=== PATIENT | female | born 1935 | race Caucasian/White ===

== ENCOUNTER 2022-07-04 09:25 | Emergency (ER) | payer MEDICARE, BC ==
[~2022-07-04] VITALS: Ht 157.5 cm; Wt 55.3 kg
[2022-07-04 09:33] VITALS: BP 137/75
--- NOTE | 2022-07-04 09:33 | NUR ---
BIBS C/O RASH ON HER LEFT KNEE X5 DAYS. VITALS ARE WITHIN NORMAL LIMITS. AWAITING MD ORDERS.
[2022-07-04] MEDS ORDERED: CLOT15CR5 TP (10:18)
--- NOTE | 2022-07-04 11:00 | NUR ---
Patient discharged to home in stable condition. Written and verbal after care instructions given. Patient verbalizes understanding of instruction.
== END 2022-07-04 11:00 | disposition home or self-care (01) ==
LOC: ER 09:30
DX: L98.9 Disorder of the skin and subcutaneous tissue, unspecified (principal); I10 Essential (primary) hypertension; I48.91 Unspecified atrial fibrillation; Z88.0 Allergy status to penicillin; Z91.013 Allergy to seafood; Z60.2 Problems related to living alone

== ENCOUNTER 2023-02-11 16:05 | Inpatient (IN) | payer MEDICARE, BC ==
[~2023-02-11] VITALS: Ht 165.1 cm; Wt 56.2 kg
[~2023-02-11 16:05] MED LIST: CLOT15CR5 TP
--- NOTE | 2023-02-11 16:20 | NUR ---
INSERTED ANGO CATHETER G 20 ON RT AC BLOOD DROW AND SENT TO LAB
--- NOTE | 2023-02-11 16:20 | NUR ---
RECEIVED PT 87 YRS FEMALE CAME FROM HOME WALKING IN C/O PAPITATION STARTED AT 1530 TOday c/o my heart reasing up EKG done at bed side DR. COLON AT BED SIDE FOR EVALUATION PT
--- NOTE | 2023-02-11 16:23 | NUR ---
PAGED DR. LUNA FOR CARDIOLOGY CONSULT
[2023-02-11] MEDS ORDERED: LORAZEPAM INJ 2 MG/ML VIAL IV ONE (16:30)
[2023-02-11] MEDS ORDERED: ASPIRIN 325 MG TABLET PO ONE (16:30)
--- NOTE | 2023-02-11 16:35 | NUR ---
PAGED DR. FRANKS FOR CONSULT
--- NOTE | 2023-02-11 16:40 | NUR ---
[facility] CALLED,DR OLIVERA SPOKE WITH DR BORREGO
--- NOTE | 2023-02-11 16:42 | NUR ---
FAXED EKGS TO [facility]
[2023-02-11 16:48] LABS: BASOPHILS % (AUTO) 0.3 % (0.0-2.0); EOSINOPHILS % (AUTO) 0.5 % (0.0-6.0); HEMATOCRIT 40 % (33-45); HEMOGLOBIN 13.3 g/dL (11.5-14.8); LYMPHOCYTES # (AUTO) 1.3 K/uL (0.8-4.8); LYMPHOCYTES % (AUTO) 19.2 % (20.0-44.0); MEAN CORPUSCULAR HGB CONC 33 g/dl (31.0-36.0); MEAN CORPUSCULAR VOLUME 92 fL (82-100); MONOCYTES # (AUTO) 0.4 K/uL (0.1-1.30); MONOCYTES % (AUTO) 5.7 % (2.0-12.0); NEUTROPHILS # (AUTO) 5.1 K/uL (1.8-8.9); NEUTROPHILS % (AUTO) 74.3 % (43.0-81.0); PLATELET COUNT (AUTO) 286 K/uL (150-450); RED BLOOD CELL COUNT(AUTO) 4.37 MIL/uL (4.0-5.2); WHITE BLOOD COUNT (AUTO) 6.8 K/uL (4.3-11.0)
--- NOTE | 2023-02-11 16:51 | NUR ---
CALL BACK FROM DR OLIVERA, SPOKE WITH DR BORREGO ACCORDING TO HER ON-CALL [place] [facility], SHE DOESN'T MEET STEMI CRITERIA
[2023-02-11] MEDS ORDERED: ASPIRIN 325 MG TABLET ONE (16:54)
[2023-02-11] MEDS ORDERED: LORAZEPAM INJ 2 MG/ML VIAL ONE (16:55)
[2023-02-11 17:02] LABS: CALCIUM, SERUM 9.5 mg/dL (8.5-10.1); CARBON DIOXIDE 26 mmol/L (21-32); CHLORIDE 103 mmol/L (98-107); CREATININE 0.9 mg/dL (0.6-1.3); D-DIMER 0.27 mg/L(FEU (0.17-0.50); GLUCOSE 186 mg/dL (74-106); POTASSIUM 3.1 mmol/L (3.5-5.1); SODIUM SERUM 142 mmol/L (136-145); UREA NITROGEN, BLOOD 13 mg/dL (7-18)
--- NOTE | 2023-02-11 17:09 | NUR ---
DR. GIO GU, CADIOLOGY
[2023-02-11 17:17] LABS: ALANINE AMINOTRANSFERASE 38 U/L (12-78); ALBUMIN 3.7 g/dL (3.4-5.0); ALKALINE PHOSPHATASE 90 U/L (46-116); ASPARTATE AMINOTRANSFERASE 28 U/L (15-37); BILIRUBIN,DIRECT 0.2 mg/dL (0.0-0.2); BILIRUBIN,TOTAL 1.2 mg/dL (0.2-1.0); TOTAL PROTEIN, SERUM 7.4 g/dL (6.4-8.2)
--- NOTE | 2023-02-11 17:29 | NUR ---
COVID SWAB SENT TO LAB
[2023-02-11] MEDS ORDERED: POTASSIUM CHLORIDE 20 MEQ TAB.PRT.SR PO ONE ×2 (17:30→18:02)
[2023-02-11] MEDS ORDERED: ATOR10TA PO (18:54)
[2023-02-11] MEDS ORDERED: RIVA10TA PO (18:54)
[2023-02-11] MEDS ORDERED: LORA-259 PO (18:54)
[2023-02-11] MEDS ORDERED: L-THEANINE PO (18:54)
[2023-02-11] MEDS ORDERED: PRED1TAB PO (18:54)
[2023-02-11] MEDS ORDERED: HYDR12.55 PO (18:54)
[2023-02-11] MEDS ORDERED: DIGO125T PO (18:54)
[2023-02-11] MEDS ORDERED: TELM40TA8 PO (18:54)
--- NOTE | 2023-02-11 19:20 | NUR ---
HAND OFF BANDAR PRESTON
--- NOTE | 2023-02-11 19:24 | NUR ---
Hernandez HERNANDEZx4, able to express her concerns. Patient on cell phone, providing pts current status. Patient states she is feeling better, and is glad that her vitals signs look better. Discussed plan of care, pt verbalized agreement. All safety precautions taken.
[2023-02-11] MEDS ORDERED: MAGNESIUM OXIDE 400 MG TABLET PO ONE (20:30)
[2023-02-11] MEDS ORDERED: MAGNESIUM OXIDE 400 MG TABLET ONE (20:51)
[2023-02-11] MEDS ORDERED: LORAZEPAM 1 MG TABLET PO PRN (21:00)
[2023-02-11 21:19] LABS: MAGNESIUM 2.1 mg/dL (1.8-2.4); PHOSPHORUS 3.3 mg/dL (2.5-4.9)
[2023-02-11] MEDS ORDERED: ONDANSETRON HCL/PF 4 MG/2 ML VIAL IVP PRN (21:30)
[2023-02-11] MEDS ORDERED: ACETAMINOPHEN 325 MG TABLET PO PRN (21:30)
[2023-02-11] MEDS ORDERED: MAGNESIUM HYDROXIDE 30 ML UDC PO PRN (21:30)
--- NOTE | 2023-02-11 21:44 | NUR ---
Report given to RN, pt clear to go up to room 311
--- NOTE | 2023-02-11 21:50 | NUR ---
TAKEN TO 311-2 UNDER ACLS
--- NOTE | 2023-02-11 22:00 | NUR ---
ADMISSION 87y/o female Alert Oriented x3 anxious, observed no sob with exertion. Coccyx redness. Ambulating independently. Instructed how to use call light device, verbalized understanding. Will cont to monitor.
[2023-02-11] MEDS: RIVAROXABAN 10 MG TABLET PO SCH (22:50)
[2023-02-11] MEDS: ATORVASTATIN 10 MG TABLET PO SCH (22:50)
[2023-02-11] MEDS: VALSARTAN 80 MG TABLET PO SCH (22:59)
[2023-02-11 23:00] VITALS: BP 178/61
[2023-02-12] VITALS (7 sets, daily range): BP systolic 105–187; BP diastolic 44–67
[2023-02-12] MEDS ORDERED: Z GUARD REMEDY 4 OZ OINT TP PRN (01:30)
--- NOTE | 2023-02-12 01:44 | NUR ---
BP ELEVATED Patient in bed, denies N/V, c/o headache. Given PO Tylenol. BP still elevated 188/75 Pulse 54. Notified REAL ESTATE PROCESSOR Mary.
--- NOTE | 2023-02-12 04:39 | NUR ---
ELEVATED BP Patient ambulated to the bathroom, headache resolved with Tylenol. BP still elevated 187/67 Sinus delia in blending line attendant HR 50's. No c/o chest pain. Notified BELEM Hernandez.
[2023-02-12] MEDS ORDERED: hydrALAZINE HCL IV 20 MG VIAL IV PRN (05:00)
[2023-02-12 07:00] LABS: BASOPHILS % (AUTO) 0.6 % (0.0-2.0); EOSINOPHILS % (AUTO) 0.8 % (0.0-6.0); HEMATOCRIT 40 % (33-45); HEMOGLOBIN 13.2 g/dL (11.5-14.8); LYMPHOCYTES # (AUTO) 1.2 K/uL (0.8-4.8); LYMPHOCYTES % (AUTO) 18.4 % (20.0-44.0); MEAN CORPUSCULAR HGB CONC 33 g/dl (31.0-36.0); MEAN CORPUSCULAR VOLUME 93 fL (82-100); MONOCYTES # (AUTO) 0.5 K/uL (0.1-1.30); MONOCYTES % (AUTO) 7.5 % (2.0-12.0); NEUTROPHILS # (AUTO) 4.7 K/uL (1.8-8.9); NEUTROPHILS % (AUTO) 72.7 % (43.0-81.0); PLATELET COUNT (AUTO) 278 K/uL (150-450); RED BLOOD CELL COUNT(AUTO) 4.28 MIL/uL (4.0-5.2); WHITE BLOOD COUNT (AUTO) 6.4 K/uL (4.3-11.0)
--- NOTE | 2023-02-12 07:11 | NUR ---
WOUND CARE CONSULT: PT PRESENTS WITH SOME REDNESS TO COCCYX AREA WHICH IS NONTENDER, PRESENT ON ADMISSION. RECOMMENDATIONS MADE FOR SKIN PROTECTION. DISCUSSED WITH NURSING STAFF. PT IS INDEPENDENT WITH BED MOBILITY AND IS CONTINENT. MD IN AGREEMENT WITH PLAN OF CARE.
[2023-02-12 07:28] LABS: ALANINE AMINOTRANSFERASE 35 U/L (12-78); ALBUMIN 3.5 g/dL (3.4-5.0); ALKALINE PHOSPHATASE 88 U/L (46-116); ASPARTATE AMINOTRANSFERASE 24 U/L (15-37); BILIRUBIN,TOTAL 1.6 mg/dL (0.2-1.0); CALCIUM, SERUM 9.2 mg/dL (8.5-10.1); CARBON DIOXIDE 26 mmol/L (21-32); CHLORIDE 106 mmol/L (98-107); CREATININE 0.7 mg/dL (0.6-1.3); GLUCOSE 115 mg/dL (74-106); PHOSPHORUS 2.9 mg/dL (2.5-4.9); POTASSIUM 3.3 mmol/L (3.5-5.1); SODIUM SERUM 143 mmol/L (136-145); TOTAL PROTEIN, SERUM 7.2 g/dL (6.4-8.2); UREA NITROGEN, BLOOD 14 mg/dL (7-18)
[2023-02-12 07:32] LABS: CHOLESTEROL 173 mg/dL (<200); HDL CHOLESTEROL 57 mg/dL (40-60); LDL 103 mg/dL (0-99); TRIGLYCERIDES 126 mg/dL (30-150)
--- NOTE | 2023-02-12 07:38 | NUR ---
END OF SHIFT REPORT Patient in bed Alert Oriented x3. BP improved, now 157/54. Denies headache, no c/o N/V. Wound care consult. Restless at times, observed no SOB with exertion. Fall precaution maintained. Endorsed care to KARY Monson.
--- NOTE | 2023-02-12 07:40 | NUR ---
RN OPENING NOTE RECEIVED PATIENT IN BED , AWAKE, A/O X4, PATIENT ANXIOUS. VERBALLY RESPONSIVE AND ABLE TO MAKE NEEDS KNOWN. NO SIGNS OF ACUTE DISTRESS NOTED. ON ROOM AIR, TOLERATING WELL. NO SOB NOTED, BREATHING EVEN AND UNLABORED. DENIES ANY PAIN AT THIS TIME. ON MASTER RIGGER SHOWING SINUS RHYTHM, HR @64. WITH IV ACCESS ON RIGHT FOREARM #20G, INTACT AND PATENT, SALINE LOCKED. SAFETY MEASURE IN PLACE. BED IN LOW AND LOCKED POSITION, SIDE RAILS UP X2, CALL LIGHT PLACED WITHIN EASY REACH. WILL CONTINUE TO MONITOR PATIENT.
[2023-02-12] MEDS: PANTOPRAZOLE 40 MG TABLET.DR PO SCH (09:12)
[2023-02-12] MEDS: hydrALAZINE HCL 50 MG TABLET PO SCH ×4 (09:12→16:40)
[2023-02-12] MEDS: VALSARTAN 80 MG TABLET PO SCH (09:12)
[2023-02-12] MEDS: predniSONE 1 MG TABLET PO SCH (09:12)
[2023-02-12] MEDS: ISOSORBIDE DINITRATE (20MG) 20 MG TABLET PO SCH ×2 (09:13→16:41)
[2023-02-12] MEDS: busPIRone 5 MG TABLET PO SCH ×3 (13:00→18:27)
[2023-02-12] MEDS: LORAZEPAM 1 MG TABLET PO PRN ×2 (13:09→19:09)
--- NOTE | 2023-02-12 13:16 | NUR ---
RN NOTE PATIENT REFUSED HYDRALAZINE AND BUSPAR, PER PATIENT SHE WANTS TO CONSULT HER PCP FIRST BEFORE TAKING ANY MEDICATION. EXPLAINED IMPORTANCE OF MEDICATION COMPLIANCE, PATIENT BECAME ANXIOUS AND ONLY WANTS TO TAKE ATIVAN. ATIVAN WAS GIVEN ORDERED.
[2023-02-12] MEDS ORDERED: POTASSIUM CHLORIDE 20 MEQ TAB.PRT.SR PO ONE (16:00)
[2023-02-12] MEDS: RIVAROXABAN 10 MG TABLET PO SCH (17:21)
--- NOTE | 2023-02-12 18:27 | NUR ---
RN NOTE PATIENT NOTED WITH SEVERE ANXIETY. CLAIMING THAT HER HEART IS RACING. V/S CHECKED: BP 122/58, HR 68. PATIENT'S ATIVAN IS NOT DUE YET. CONSIDERING TAKING BUSPAR THAT SHE REFUSED EARLIER. HEALTH TEACHINGS PROVIDED REGARDING RELAXATION TECHNIQUES. FRIEND AT BEDSIDE. WILL CONTINUE TO MONITOR.
--- NOTE | 2023-02-12 18:54 | NUR ---
RN CLOSING NOTE PATIENT IN BED , AWAKE, STILL WITH EPISODE OF ANXIETY. NO SIGNS OF ACUTE DISTRESS NOTED. REMAINS STABLE ON ROOM AIR, NO SOB NOTED, BREATHING EVEN AND UNLABORED. DENIES ANY PAIN AT THIS TIME. ON ELECTRONIC IMAGING SYSTEM OPERATOR SHOWING SINUS RHYTHM, HR @62. IV ACCESS ON RIGHT FOREARM #20G, INTACT AND PATENT, SALINE LOCKED. SAFETY MEASURE MAINTAINED. BED IN LOW AND LOCKED POSITION, SIDE RAILS UP X2, CALL LIGHT PLACED WITHIN EASY REACH. WILL ENDORSE TO NEXT SHIFT FOR CONTINUITY OF CARE.
--- NOTE | 2023-02-12 19:00 | NUR ---
RN OPENING NOTE RECEIVED PT AWAKE IN BED WITH FRIEND, LYNDSEY @ BEDSIDE. PT IS A/O X 4, ABLE TO MAKE NEEDS KNOWN. PT IS IN RA, TOLERATING WELL, BREATHING EVEN AND UNLABORED @ THIS TIME. PT IV PRESENT IS RIGHT FOREARM #20G, RIGHT AC BOTH SALINE LOCK, PATENT, INTACT AND FLUSHES WELL W/ NO S&SX OF INFILTRATION @ SITE NOTED. PT PHYSIOTHERAPIST'S ASSISTANT IS IN PLACE WITH CURRENT READING OF SINUS RHYTHM, HR OF 62BPM. SAFETY MEASURES IS IN PLACE. BED IN LOWEST & LOCKED POSITION. SIDE RAILS UP X 2. BEDSIDE TABLE AND CALL LIGHT IS WITHIN REACH. BED ALARM IS ON. WILL CONTINUE TO MONITOR PT ACCORDINGLY.
[2023-02-12] MEDS: ATORVASTATIN 10 MG TABLET PO SCH (21:06)
[2023-02-13] VITALS: BP 114/44
[2023-02-13 04:00] VITALS: BP 123/53
[2023-02-13 05:44] LABS: BASOPHILS % (AUTO) 0.3 % (0.0-2.0); EOSINOPHILS % (AUTO) 0.8 % (0.0-6.0); HEMATOCRIT 36 % (33-45); HEMOGLOBIN 12.2 g/dL (11.5-14.8); LYMPHOCYTES # (AUTO) 1.4 K/uL (0.8-4.8); LYMPHOCYTES % (AUTO) 16.1 % (20.0-44.0); MEAN CORPUSCULAR HGB CONC 34 g/dl (31.0-36.0); MEAN CORPUSCULAR VOLUME 93 fL (82-100); MONOCYTES # (AUTO) 0.7 K/uL (0.1-1.30); MONOCYTES % (AUTO) 8.4 % (2.0-12.0); NEUTROPHILS # (AUTO) 6.5 K/uL (1.8-8.9); NEUTROPHILS % (AUTO) 74.4 % (43.0-81.0); PLATELET COUNT (AUTO) 273 K/uL (150-450); RED BLOOD CELL COUNT(AUTO) 3.89 MIL/uL (4.0-5.2); WHITE BLOOD COUNT (AUTO) 8.8 K/uL (4.3-11.0)
[2023-02-13 05:59] LABS: ALANINE AMINOTRANSFERASE 33 U/L (12-78); ALBUMIN 3.3 g/dL (3.4-5.0); ALKALINE PHOSPHATASE 82 U/L (46-116); ASPARTATE AMINOTRANSFERASE 33 U/L (15-37); BILIRUBIN,TOTAL 1.6 mg/dL (0.2-1.0); CALCIUM, SERUM 9.3 mg/dL (8.5-10.1); CARBON DIOXIDE 26 mmol/L (21-32); CHLORIDE 106 mmol/L (98-107); CREATININE 1.1 mg/dL (0.6-1.3); GLUCOSE 98 mg/dL (74-106); MAGNESIUM 2.3 mg/dL (1.8-2.4); PHOSPHORUS 3.8 mg/dL (2.5-4.9); POTASSIUM 3.9 mmol/L (3.5-5.1); SODIUM SERUM 140 mmol/L (136-145); TOTAL PROTEIN, SERUM 6.7 g/dL (6.4-8.2); UREA NITROGEN, BLOOD 21 mg/dL (7-18)
--- NOTE | 2023-02-13 06:37 | NUR ---
RN CLOSING NOTE PT AWAKE & RESTING COMFORTABLY IN BED. PT IS A/O X 4, RESPONSIVE & FOLLOWS VERBAL COMMAND. PT IS IN RA, W/ NO RESPIRATORY DISTRESS @ THIS TIME. PT IV PRESENT IS RIGHT FOREARM #20G, RIGHT AC BOTH SALINE LOCK, PATENT, INTACT AND FLUSHES WELL W/ NO S&SX OF INFILTRATION @ SITE NOTED. PT COLLISION TECHNICIAN IS IN PLACE WITH CURRENT READING OF SINUS BRADYCARDIA, HR 54BPM. SAFETY MEASURES IS IN PLACE. BED IN LOWEST & LOCKED POSITION. SIDE RAILS UP X 2. BEDSIDE TABLE AND CALL LIGHT IS WITHIN REACH. BED ALARM IS ON. WILL ENDORSE TO THE NEXT SHIFT FOR SHEY.
--- NOTE | 2023-02-13 07:30 | NUR ---
RN OPENING NOTE RECEIVED PT AWAKE IN BED. PT IS A/O X 4, AND WITH FORGETFULNESS PT IS IN RA, TOLERATING WELL, NO SOB OR DISTRESS AT THIS TIME . PT IV PRESENT IS RIGHT FOREARM #20G, RIGHT AC BOTH SALINE LOCK, PATENT, INTACT AND FLUSHES WELL W/ NO S&SX OF INFILTRATION @ SITE NOTED. PT RESEARCH WORKER ENCYCLOPEDIA IS IN PLACE WITH CURRENT READING OF SINUS RHYTHM, HR OF 68 BPM. SAFETY MEASURES IS IN PLACE. BED IN LOWEST & LOCKED POSITION. SIDE RAILS UP X 2. BEDSIDE TABLE AND CALL LIGHT IS WITHIN REACH. BED ALARM IS ON. WILL CONTINUE TO MONITOR PT ACCORDINGLY.
[2023-02-13 08:00] VITALS: BP 138/58
[2023-02-13] MEDS: PANTOPRAZOLE 40 MG TABLET.DR PO SCH (08:17)
[2023-02-13] MEDS: predniSONE 1 MG TABLET PO SCH (08:29)
[2023-02-13] MEDS: VALSARTAN 80 MG TABLET PO SCH (08:29)
[2023-02-13 08:30] VITALS: BP 138/58
[2023-02-13] MEDS: hydrALAZINE HCL 50 MG TABLET PO SCH (08:30)
[2023-02-13] MEDS: ISOSORBIDE DINITRATE (20MG) 20 MG TABLET PO SCH (08:30)
[2023-02-13] MEDS: busPIRone 5 MG TABLET PO SCH (08:30)
[2023-02-13] MEDS: LORAZEPAM 1 MG TABLET PO PRN (08:35)
--- NOTE | 2023-02-13 08:35 | NUR ---
RN NOTE Witnessed waste of Ativan ).5 mg with KARY Avendaño.
--- NOTE | 2023-02-13 08:40 | NUR ---
RN NOTES PATIENT WAS COMPLAINING OF VERY ANXIOUS AND WITH ORDER OF ATIVAN 0.5MG , GIVEN , AVAILABLE DOSE WAS 1 MG AND PARTIAL DOSE AND WASTED DONE WITNESS BY KRANTHI RN
[2023-02-13] MEDS ORDERED: BUSP10TA35 PO (09:12)
--- NOTE | 2023-02-13 12:12 | NUR ---
RN DISCHARGED NOTES PATIENT WAS SEEN BY MD AND WITH ORDER FOR DISCHARGE TO HOME , MEDICALLY CLEARED , ALL DISCHARGE PAPERS WERE PREPARED , INSTRUCTIONS PROVIDED REGARDING MEDICATIONS TO CONTINUE AT HOME AND THE NEW ORDER , FOLLOW WITH PCP , ALL INSTRUCTIONS WERE UNDERSTOOD AND FRIEND LYNDSEY WAS AT BEDSIDE , ALL BELONGINGS WERE TAKEN AND FORM WAS SIGNED BY THE PATIENT , TRANSPORTATION WAS PROVIDED BY [facility] , IV ACCESS, ID BADGE WAS REMOVED AND PATIENT WAS ASSISTED TO THE TO THE LOBBY VIA WHEEL CHAIR BY THE MANAGER RELATIONSHIP , LEFT WITH NO C/O OF PAIN AND DISCOMFORT AND NO SOB OR DISTRESS , LEFT IN A STABLE CONDITION
== END 2023-02-13 14:21 | disposition home or self-care (01) | DRG 305 ==
LOC: ER 16:08 → TELE 21:03
PROVIDERS: ADMIT Nurse Practitioner Acute Care
DX: I16.0 Hypertensive urgency (principal); E87.6 Hypokalemia; F41.9 Anxiety disorder, unspecified; I48.91 Unspecified atrial fibrillation; M19.90 Unspecified osteoarthritis, unspecified site; I10 Essential (primary) hypertension; E78.5 Hyperlipidemia, unspecified; Z79.01 Long term (current) use of anticoagulants; Z88.0 Allergy status to penicillin; Z20.822 Contact with and (suspected) exposure to COVID-19; E80.6 Other disorders of bilirubin metabolism; F29 Unspecified psychosis not due to a substance or known physiological condition; Z91.199 Patient's noncompliance with other medical treatment and regimen due to unspecified reason
CPT/HCPCS: 36415; 71045-TC; 80048-TC; 80053-TC; 80061-TC; 80076-TC; 80162-TC; 83735-TC; 83880; 84100-TC; 84484-TC; 85025-TC; 85378-TC; 85730-TC; 87081-TC; 93307-TC; C9803; G0378; J0360; J2060; J7512

== ENCOUNTER 2023-06-12 12:15 | Emergency (ER) | payer MEDICARE, BC ==
[~2023-06-12] VITALS: Ht 157.5 cm; Wt 55.8 kg
[~2023-06-12 12:15] MED LIST changes: +ATOR10TA PO; +BUSP10TA35 PO; -CLOT15CR5 TP; +DIGO125T PO; +HYDR12.55 PO; +L-THEANINE PO; +LORA-259 PO; +PRED1TAB PO; +RIVA10TA PO; +TELM40TA8 PO
[2023-06-12 12:37] VITALS: BP 142/57; TEMP 98.1
[2023-06-12] MEDS ORDERED: HYDR28.32 TP (12:50)
[2023-06-12 12:57] VITALS: O2SAT 100
== END 2023-06-12 12:58 | disposition home or self-care (01) ==
LOC: ER 12:15
DX: M79.89 Other specified soft tissue disorders (principal); I10 Essential (primary) hypertension; I48.91 Unspecified atrial fibrillation; Z60.2 Problems related to living alone; Z88.0 Allergy status to penicillin; Z79.899 Other long term (current) drug therapy; Z91.040 Latex allergy status; W57.XXXA Bitten or stung by nonvenomous insect and other nonvenomous arthropods, initial encounter; Y93.89 Activity, other specified; Y92.89 Other specified places as the place of occurrence of the external cause; Y99.8 Other external cause status

== ENCOUNTER 2023-08-28 08:53 | Emergency (ER) | payer MEDICARE, BC ==
[~2023-08-28] VITALS: Ht 157.5 cm; Wt 55.3 kg
[~2023-08-28 08:53] MED LIST changes: +HYDR28.32 TP
[2023-08-28 09:06] VITALS: BP 110/67; TEMP 98.2; O2SAT 100
[2023-08-28] MEDS ORDERED: BACITRACIN ZINC OINT PACKET 1 EA PACKET TP ONE ×2 (09:30→09:44)
== END 2023-08-28 10:18 | disposition home or self-care (01) ==
LOC: ER 08:53
DX: T23.211A Burn of second degree of right thumb (nail), initial encounter (principal); I10 Essential (primary) hypertension; I48.91 Unspecified atrial fibrillation; Z88.0 Allergy status to penicillin; Z88.8 Allergy status to other drugs, medicaments and biological substances; Z91.013 Allergy to seafood; Z60.2 Problems related to living alone; X19.XXXA Contact with other heat and hot substances, initial encounter; Y93.89 Activity, other specified; Y92.89 Other specified places as the place of occurrence of the external cause; Y99.8 Other external cause status